=== PATIENT | female | born 1980 | race Caucasian/White ===

== ENCOUNTER 2017-05-10 16:20 | Emergency (ER) | payer BC ==
[~2017-05-10] VITALS: Ht 162.6 cm; Wt 104.3 kg
[2017-05-10] MEDS ORDERED: IV NORMAL SALINE 1000ML BAG 1,000 ML IV SCH (16:51)
--- NOTE | 2017-05-10 16:51 | PHYS DOC ---
Past Medical History Past Medical History: Other Additional Past Medical Histor: PT STATES SHE HAS BEEN TREATED FOR BLOOD CLOTS Past Surgical History: Hysterectomy, Tonsillectomy Additional Past Surgical Histo: BILAT THUMBS Alcohol Use: None Drug Use: None Adult General Chief Complaint Chief Complaint: MULTIPLE COMPLAINTS HPI HPI Patient is a 28 year old female who presents with left-sided chest pain and heat exhaustion. 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 She denies any history of smoking or any history of coronary disease in her family. She does have a history hypertension takes 10 mg of lisinopril daily. She states the pain started around 2:00 and it was made worse when she found out her son's grandfather just . Review of Systems Review of Systems Constitutional: Denies fever or chills [] Eyes: Denies change in visual acuity, redness, or eye pain [] HENT: Denies nasal congestion or sore throat [] Respiratory: Denies cough or shortness of breath [] Cardiovascular: No additional information not addressed in HPI [] GI: Denies abdominal pain, nausea, vomiting, bloody stools or diarrhea [] : Denies dysuria or hematuria [] Musculoskeletal: Denies back pain or joint pain [] Integument: Denies rash or skin lesions [] Neurologic: Denies headache, focal weakness or sensory changes [] Endocrine: Denies polyuria or polydipsia [] Current Medications Current Medications Current Medications Medications (Trade) Dose Ordered Sig/Des Start Time Stop Time Status Last Admin Dose Admin Iohexol (Omnipaque 300 Mg/ml) 75 ml 1X ONCE 05/10/17 19:30 05/10/17 19:31 DC 05/10/17 19:54 75 ML Sodium Chloride 1,000 ml @ 1,000 mls/hr Q1H 05/10/17 16:51 05/10/17 17:50 DC 05/10/17 17:22 1,000 MLS/HR Allergies Allergies Allergies Coded Allergies Type Severity Reaction Last Updated Verified aspirin Allergy Severe HIGH FEVER 12/19/14 Yes latex Allergy Intermediate RASH 12/19/14 Yes tramadol Allergy Mild SEVERE NAUSEA 12/19/14 Yes Physical Exam Physical Exam Constitutional: Well developed, well nourished, no acute distress, non-toxic appearance. [] HENT: Normocephalic, atraumatic, bilateral external ears normal, oropharynx moist, no oral exudates, nose normal. [] Eyes: PERRLA, EOMI, conjunctiva normal, no discharge. [] Neck: Normal range of motion, no tenderness, supple, no stridor. [] Cardiovascular:Heart rate regular rhythm, no murmur [] Lungs & Thorax: Bilateral breath sounds clear to auscultation [] Abdomen: Bowel sounds normal, soft, no tenderness, no masses, no pulsatile masses. [] Skin: Warm, dry, no erythema, no rash. [] Back: No tenderness, no CVA tenderness. [] Extremities: No tenderness, no cyanosis, no clubbing, ROM intact, no edema. [] Neurologic: Alert and oriented X 3, normal motor function, normal sensory function, no focal deficits noted. [] Psychologic: Affect normal, judgement normal, mood normal. [] Current Patient Data Vital Signs Vital Signs Date Time Temp Pulse Resp B/P (MAP) Pulse Ox O2 Delivery O2 Flow Rate FiO2 05/10/17 21:00 77 20 134/80 (98) 99 Room Air 05/10/17 16:30 97.9 97.9 Lab Values Laboratory Tests Test 05/10/17 17:00 05/10/17 17:15 05/10/17 20:58 White Blood Count 8.8 x10^3/uL (4.0-11.0) Red Blood Count 4.33 x10^6/uL (3.50-5.40) Hemoglobin 14.5 g/dL (12.0-15.5) Hematocrit 41.9 % (36.0-47.0) Mean Corpuscular Volume 97 fL (79-100) Mean Corpuscular Hemoglobin 34 pg (25-35) Mean Corpuscular Hemoglobin Concent 35 g/dL (31-37) Red Cell Distribution Width 13.3 % (11.5-14.5) Platelet Count 289 x10^3/uL (140-400) Neutrophils (%) (Auto) 65 % (31-73) Lymphocytes (%) (Auto) 22 % (24-48) L Monocytes (%) (Auto) 10 % (0-9) H Eosinophils (%) (Auto) 3 % (0-3) Basophils (%) (Auto) 1 % (0-3) Neutrophils # (Auto) 5.7 x10^3uL (1.8-7.7) Lymphocytes # (Auto) 1.9 x10^3/uL (1.0-4.8) Monocytes # (Auto) 0.9 x10^3/uL (0.0-1.1) Eosinophils # (Auto) 0.2 x10^3/uL (0.0-0.7) Basophils # (Auto) 0.1 x10^3/uL (0.0-0.2) Prothrombin Time 12.2 SEC (11.7-14.0) Prothrombin Time INR 1.0 (0.8-1.1) D-Dimer (Promise) 0.50 ug/mlFEU (0.00-0.50) Sodium Level 140 mmol/L (136-145) Potassium Level 3.4 mmol/L (3.5-5.1) L Chloride Level 103 mmol/L (98-107) Carbon Dioxide Level 27 mmol/L (21-32) Anion Gap 10 (6-14) Blood Urea Nitrogen 13 mg/dL (7-20) Creatinine 0.9 mg/dL (0.6-1.0) Estimated GFR (Cockcroft-Gault) 70.1 Glucose Level 94 mg/dL (70-99) Calcium Level 9.1 mg/dL (8.5-10.1) Magnesium Level 2.0 mg/dL (1.8-2.4) Total Bilirubin 0.3 mg/dL (0.2-1.0) Direct Bilirubin 0.1 mg/dL (0.0-0.2) Aspartate Amino Transferase (AST) 20 U/L (15-37) Alanine Aminotransferase (ALT) 28 U/L (14-59) Alkaline Phosphatase 79 U/L (46-116) Creatine Kinase 92 U/L (26-192) 79 U/L (26-192) Creatine Kinase MB (Mass) 1.3 ng/mL (0.0-3.6) 0.9 ng/mL (0.0-3.6) Creatine Kinase MB Relative Index 1.4 % (0-4) 1.1 % (0-4) Troponin I Quantitative < 0.017 ng/mL (0.000-0.055) < 0.017 ng/mL (0.000-0.055) XI-Msm-D-Type Natriuretic Peptide 197 pg/mL (0-124) H Total Protein 7.7 g/dL (6.4-8.2) Albumin 3.9 g/dL (3.4-5.0) Lipase 116 U/L (73-393) Thyroid Stimulating Hormone (TSH) 2.182 uIU/mL (0.358-3.74) Urine Color Yellow Urine Clarity Clear Urine pH 5.5 Urine Specific [place] 1.025 Urine Protein Negative mg/dL (NEG-TRACE) Urine Glucose (UA) Negative mg/dL (NEG) Urine Ketones (Stick) Negative mg/dL (NEG) Urine Blood Negative (NEG) Urine Nitrite Positive (NEG) Urine Bilirubin Negative (NEG) Urine Urobilinogen Dipstick 0.2 mg/dL (0.2 mg/dL) Urine Leukocyte Esterase Small (NEG) Urine RBC 0 /HPF (0-2) Urine WBC 1-4 /HPF (0-4) Urine Squamous Epithelial Cells Occ /LPF Urine Transitional Epithelial Cells Occ /LPF Urine Bacteria Many /HPF (0-FEW) Urine Mucus Mod /LPF Urine Test Negative (NEG) Urine Opiates Screen Neg (NEG) Urine Methadone Screen Neg (NEG) Urine Barbiturates Neg (NEG) Urine Phencyclidine Screen Neg (NEG) Urine Amphetamine/Methamphetamine Neg (NEG) Urine Benzodiazepines Screen Neg (NEG) Urine Cocaine Screen Neg (NEG) Urine Cannabinoids Screen Pos (NEG) Urine Ethyl Alcohol Neg (NEG) Laboratory Tests 05/10/17 17:00 Laboratory Tests 05/10/17 17:00 EKG EKG EKG shows sinus tachycardia with a rate of 104 bpm with left axis deviation, no ST elevations appreciated, T-wave inversions in lead 3, QTC 424 ms, as interpreted by me. Radiology/Procedures Radiology/Procedures [facility] [address] [place] [address] IMAGING REPORT Signed PATIENT: CLAIRE CAMPUZANO ACCOUNT: [id number] : 1980 LOCATION: ER AGE: 36 SEX: F EXAM STATUS: REG ER ORD. PHYSICIAN: KAUSHIK LO MD REASON: r/o pe PROCEDURE: CT ANGIOGRAPHY CHEST CT pulmonary angiogram with intravenous contrast History: Shortness of breath and chest pain for one day Comparison: None. Technique: CT pulmonary angiogram of the chest with attention to the pulmonary arteries was performed after the administration of intravenous contrast, 75 mL of Omnipaque 300. Axial 2-D reconstructions were obtained. Coronal 3-D MIPS were obtained of the pulmonary arterial vasculature of the chest. Exposure: One or more of the following individualized dose reduction techniques were utilized for this examination: 1. Automated exposure control 2. Adjustment of the mA and/or kV according to patient size 3. Use of iterative reconstruction technique Findings: Pulmonary arteries are adequately opacified. There is no evidence of pulmonary embolism. Trachea and proximal bronchi appear patent. Thyroid appears symmetric. No acute airspace disease is identified. No pneumothorax or pleural effusion is seen. No mediastinal lymphadenopathy is seen. Thoracic aorta has normal caliber. Heart and pericardium are unremarkable. Impression: 1. No evidence of pulmonary embolism. No acute abnormality identified in the chest. Electronically signed by: Emanuel Pierre MD (05/10/2017 7:49 PM) DICTATED and SIGNED BY: EMANUEL PIERRE MD DATE: 05/10/171945 CC: KAUSHIK LO MD; ADAN HAMILTON MD ~ Impressions: Heat exhaustion Chest pain UTI Course & Med Decision Making Course & Med Decision Making Pertinent Labs and Imaging studies reviewed. (See chart for details) Patient initially arrived tachycardia without any complaints of chest discomfort or shortness of breath. Her d-dimer came elevated at 0.5. CT angiogram was performed and did not show any acute abnormalities or PE. Urine does show signs of a UTI. She does complain about some dysuria. Do not believe that she has any acute cardio vascular event going on this time. I believe this is all secondary to her heat exhaustion and since her symptoms are completely resolved. I did repeat a troponin and a CK which is lower now actually. Patient is getting treated with Bactrim for 3 days and being discharged with cardiology all of and to follow-up with her primary care physician. Return precautions given she is agreeable to the plan and being discharged in stable condition at this time. Dragon Disclaimer Dragon Disclaimer This electronic medical record was generated, in whole or in part, using a voice recognition dictation system. Departure Departure Impression: Primary Impression: Heat exhaustion Additional Impressions: Chest pain UTI (urinary tract infection) Disposition: 01 HOME, SELF-CARE Condition: STABLE Referrals: ADAN HAMILTON MD (PCP) DELISA BLEVINS MD Patient Instructions: Chest Pain (Nonspecific) Additional Instructions: Your EKG, labs, CT angiogram of your chest did not show any acute abnormalities. Your being discharged home. Please follow up your primary care physician within the next week. Please follow-up with cardiology. Please call their office and schedule follow-up appointment. Your being discharged with Bactrim double strength for 3 days for your urinary tract infection. Return ER if your chest pain returns, you have any troubles breathing, fevers or other concerns. Scripts Sulfamethoxazole/Trimethoprim (BACTRIM 400-80 MG TABLET) 1 Each Tablet 1 TAB PO BID for 3 Days, #6 TAB Prov: KAUSHIK LO MD 05/10/17 Problem Qualifiers Primary Impression: Heat exhaustion Encounter type: initial encounter Qualified Codes: T67.5XXA - Heat exhaustion, unspecified, initial encounter Additional Impressions: Chest pain Chest pain type: unspecified Qualified Codes: R07.9 - Chest pain, unspecified KAUSHIK LO MD May 10, 2017 16:51
[2017-05-10 17:15] LABS: BASO # 0.1 x10^3/uL (0.0-0.2); BASO % 1 % (0-3); EOS % 3 % (0-3); HEMATOCRIT 41.9 % (36.0-47.0); HEMOGLOBIN 14.5 g/dL (12.0-15.5); LYMPH # 1.9 x10^3/uL (1.0-4.8); LYMPH % 22 % (24-48); MEAN CORPUSCULAR HEMOGLOBIN 34 pg (25-35); MEAN CORPUSCULAR HGB CONC 35 g/dL (31-37); MEAN CORPUSCULAR VOLUME 97 fL (79-100); MONO % 10 % (0-9); NEUT % 65 % (31-73); PLATELET COUNT 289 x10^3/uL (140-400); RED BLOOD COUNT 4.33 x10^6/uL (3.50-5.40); RED CELL DISTRIBUTION WIDTH 13.3 % (11.5-14.5); WHITE BLOOD COUNT 8.8 x10^3/uL (4.0-11.0)
[2017-05-10 17:26] LABS: CALCIUM 9.1 mg/dL (8.5-10.1); CREATININE 0.9 mg/dL (0.6-1.0); GFR 70.1; POTASSIUM 3.4 mmol/L (3.5-5.1)
[2017-05-10 17:29] LABS: BILIRUBIN,URINE NEGATIVE (NEG); GLUCOSE,URINE NEGATIVE (NEG); NITRITE,URINE POSITIVE (NEG); PH,URINE 5.5; PROTEIN,URINE NEGATIVE (NEG-TRACE); UROBILINOGEN,URINE 0.2 mg/dL (0.2 mg/dL)
[2017-05-10 17:32] LABS: ALBUMIN 3.9 g/dL (3.4-5.0); DIRECT BILIRUBIN 0.1 mg/dL (0.0-0.2); PROTHROMBIN TIME PATIENT 12.2 SEC (11.7-14.0); TOTAL BILIRUBIN 0.3 mg/dL (0.2-1.0); TOTAL PROTEIN 7.7 g/dL (6.4-8.2)
[2017-05-10 17:37] LABS: BARBITURATES NEG (NEG); BENZODIAZEPINES NEG (NEG); CANNABINOIDS POS (NEG); COCAINE NEG (NEG); METHADONE NEG (NEG); OPIATES NEG (NEG); PHENCYCLIDINE NEG (NEG)
[2017-05-10 17:38] LABS: NEG OBC UR NEG; POS OBC UR POS
[2017-05-10 17:38] LABS: CKMB MASS 1.3 ng/mL (0.0-3.6)
[2017-05-10 17:39] LABS: BACTERIA,URINE MANY /HPF (0-FEW); RBC,URINE 0 /HPF (0-2); SQUAMOUS EPITHELIAL CELL,UR OCC /LPF
[2017-05-10] MEDS ORDERED: IOHEXOL 300 MG/ML 75 ML VIAL IV ONE (19:30)
--- NOTE | 2017-05-10 19:52 | RAD ---
CT pulmonary angiogram with intravenous contrast History: Shortness of breath and chest pain for one day Comparison: None. Technique: CT pulmonary angiogram of the chest with attention to the pulmonary arteries was performed after the administration of intravenous contrast, 75 mL of Omnipaque 300. Axial 2-D reconstructions were obtained. Coronal 3-D MIPS were obtained of the pulmonary arterial vasculature of the chest. Exposure: One or more of the following individualized dose reduction techniques were utilized for this examination: 1. Automated exposure control 2. Adjustment of the mA and/or kV according to patient size 3. Use of iterative reconstruction technique Findings: Pulmonary arteries are adequately opacified. There is no evidence of pulmonary embolism. Trachea and proximal bronchi appear patent. Thyroid appears symmetric. No acute airspace disease is identified. No pneumothorax or pleural effusion is seen. No mediastinal lymphadenopathy is seen. Thoracic aorta has normal caliber. Heart and pericardium are unremarkable. Impression: 1. No evidence of pulmonary embolism. No acute abnormality identified in the chest. Electronically signed by: Emanuel Lala MD (05/10/2017 7:49 PM)
[2017-05-10 21:00] VITALS: BP 134/80
[2017-05-10 21:29] LABS: CKMB MASS 0.9 ng/mL (0.0-3.6)
[2017-05-10] MEDS ORDERED: SULF1TAB23 PO (21:52)
[2017-05-10] MEDS ORDERED: SMZ/TMP 800/160MG TABLET. PO ONE (22:00)
--- NOTE | 2017-05-11 06:17 | EKG ---
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
--- NOTE | 2017-05-11 08:20 | RAD ---
EXAM: Chest one view. HISTORY: Dizziness, fatigue, shortness of breath, hypertension. COMPARISON: 12/19/2014. FINDINGS: A frontal view of the chest is obtained. There are no confluent infiltrates. There is no pneumothorax or pleural effusion. The heart is mildly enlarged. IMPRESSION: 1. Mild cardiomegaly.
== END 2017-05-10 22:20 | disposition home or self-care (01) ==
LOC: ER 16:20
DX: T67.5XXA Heat exhaustion, unspecified, initial encounter (principal); R07.89 Other chest pain; N39.0 Urinary tract infection, site not specified; I10 Essential (primary) hypertension; Z90.710 Acquired absence of both cervix and uterus; Z88.6 Allergy status to analgesic agent; Z91.040 Latex allergy status; Z88.5 Allergy status to narcotic agent; Y93.89 Activity, other specified; Y99.8 Other external cause status; Y92.89 Other specified places as the place of occurrence of the external cause
CPT/HCPCS: 36415; 71010; 71275; 80048; 80076; 80305; 80320; 81001; 81025; 82553; 83690; 83735; 83880; 84443; 84484; 85027; 85379; 85610; 87086; 87186; 93005; 96360; 96361; 99285; J7030; Q9967; G0481

== ENCOUNTER → 2021-12-18 | Outpatient (CLI) | payer OTHER ==
[~2021-12-18] MED LIST: SULF1TAB23 PO
--- NOTE | 2021-12-18 08:51 | KCIC ---
Chest, PA and Lateral: Technique: PA and lateral views of the chest were obtained. History: Cough, shortness of breath. Comparison: 12/19/2014. Findings: The heart and pulmonary vasculature appear within normal limits. Minimal bibasilar lung atelectasis or infiltrates.. The pleural margins are clear. Impression: Minimal bibasilar lung atelectasis or infiltrates. Electronically signed by: Cameron Colin MD (12/18/2021 8:49 AM) [id number]
== END ==
LOC: KCIC 08:10
PROVIDERS: ATTEND Family Medicine
DX: R05.9 Cough, unspecified (principal); R06.02 Shortness of breath; Z20.822 Contact with and (suspected) exposure to COVID-19
CPT/HCPCS: 71046